=== PATIENT | female | born 1955 ===

== ENCOUNTER 2022-01-14 08:45 | Inpatient (IN) | payer OTHER ==
[~2022-01-14] VITALS: Ht 160 cm; Wt 93.0 kg
[2022-01-14] MEDS ORDERED: SINGULAIR10 MG (09:28)
[2022-01-14] MEDS ORDERED: EVISTA60 MG (09:29)
[2022-01-14] MEDS ORDERED: CLONAZEPAM0.5 M1 (09:30)
[2022-01-14] MEDS ORDERED: ETODOLAC (09:30)
[2022-01-21] MEDS ORDERED: LUMIGAN2.5 M1 (10:26)
[2022-01-21] MEDS ORDERED: HYDROCHLOROTH12.5 MG (10:26)
[2022-01-21] MEDS ORDERED: LEVALBUTEROL TA15 GM (10:26)
[2022-01-21] MEDS ORDERED: TRELEGY ELLIPT1 EAC1 (10:26)
[2022-01-21] MEDS ORDERED: PANTOPRAZOLE SO40 MG (10:26)
[2022-01-21] MEDS ORDERED: ETODOLAC500 MG (10:27)
[2022-01-21] MEDS ORDERED: ALLERGY RELIEF10 MG (10:27)
[2022-01-21] MEDS ORDERED: PREDNISONE20 M1 (10:27)
[2022-01-21] MEDS ORDERED: FLONASE16 GM (10:27)
[2022-01-21] MEDS ORDERED: FAMOTIDINE20 MG (10:27)
[2022-01-22] MEDS ORDERED: ELIQUIS2.5 MG PO (15:32)
[2022-01-22] MEDS ORDERED: PERCOCET 5-3251 EACH PO (15:32)
[2022-01-22] MEDS ORDERED: CEFADROXIL500 MG PO (15:32)
== END 2022-01-22 17:34 | disposition home or self-care (01) | DRG 470 ==
LOC: O/R 01-20 05:06 → SURG 01-20 07:00 → SURH 01-20 09:15
PROVIDERS: ADMIT Orthopaedic Surgery; ATTEND Orthopaedic Surgery
PROC: 0SRC0J9 Replacement of Right Knee Joint with Synthetic Substitute, Cemented, Open Approach (ICD-10-PCS; principal; 2022-01-20 07:00)
DX: M17.11 Unilateral primary osteoarthritis, right knee (principal); D62 Acute posthemorrhagic anemia; M22.11 Recurrent subluxation of patella, right knee; M81.0 Age-related osteoporosis without current pathological fracture; Z96.651 Presence of right artificial knee joint; Z20.822 Contact with and (suspected) exposure to COVID-19